=== PATIENT | female | born 1970 | race African-American/Black ===

== ENCOUNTER 2017-01-17 15:45 | Emergency (ER) | payer OTHER ==
[~2017-01-17] VITALS: Ht 170.2 cm; Wt 98.0 kg
[~2017-01-17 15:45] MED LIST: CLON0.1T PO
[2017-01-17 15:46] VITALS: BP 182/102; PULSE 94; RESP 20; TEMP 98.7; O2SAT 98
[2017-01-17] MEDS ORDERED: SODIUM CHLORIDE 0.9% FLUSH 10 ML FLUSH IV FLUSH PRN (19:00)
[2017-01-17] MEDS ORDERED: KETOROLAC TROMETHAMINE 30 MG/ML (IVP) VIAL IV PUSH ONE (19:00)
[2017-01-17] MEDS ORDERED: METOCLOPRAMIDE HCL 10 MG/2 ML VIAL IV PUSH ONE (19:00)
[2017-01-17 19:04] VITALS: BP 186/104; PULSE 74; RESP 19; O2SAT 100
--- NOTE | 2017-01-17 19:06 | PD ---
HPI Chief Complaint: GI Complaint Time Seen by Provider: 18:47 Travel History International Travel<30 days: No Contact w/Intl Traveler<30days: No Traveled to known affect area: No History of Present Illness HPI 46-year-old female with history of hypertension here for evaluation of elevated blood pressure and headache. Patient reports that her headache started this morning after waking up. Headache gradually worsened over time and was not sudden in onset. She reports that she took her blood pressure when she noted the headache and noticed it was 200s over 100s. She took a clonidine with only minimal improvement in her blood pressure. She has had photophobia, nausea, and vomiting with her headache. She describes diffuse head pressure which is currently 6 out of 10. She is also had intermittent blurry vision. No paresthesias or motor deficits. No fevers or recent illness. She no longer has a primary care physician and no longer is able to obtain her amlodipine or atenolol. PFSH Past Medical History Anemia: Yes Asthma: Yes Diminished Hearing: No Headaches: Yes Hypertension: Yes ?: Not LMP: 01/09/17 : 2 Para: 2 Tubal Ligation: Yes Past Surgical History Section: Yes (1988) Social History Alcohol Use: No Tobacco Use: No Substance Use: No Allergies-Medications (Allergen,Severity, Reaction): Coded Allergies: azithromycin (Unverified Allergy, Severe, 01/17/17) erythromycin base (Unverified Allergy, Severe, 01/17/17) Reported Meds & Prescriptions Reported Meds & Active Scripts Active Reported Atenolol 25 Mg Tab Unknown Dose PO DAILY Lisinopril 40 Mg Tab Unknown Dose PO DAILY Norvasc (Amlodipine Besylate) 10 Mg Tab Unknown Dose PO DAILY Review of Systems Except as stated in HPI: all other systems reviewed are Neg Physical Exam Narrative GENERAL: Well-developed, well-nourished, comfortable, no apparent distress. SKIN: Focused skin assessment warm/dry. HEAD: Atraumatic. Normocephalic. EYES: Pupils equal, round, 3 mm, reactive to light. EOMI. No scleral icterus. No injection or drainage. ENT: No nasal bleeding or discharge. Mucous membranes pink and moist. NECK: Trachea midline. No JVD. No nuchal rigidity. CARDIOVASCULAR: Regular rate and rhythm. No murmur appreciated. RESPIRATORY: No accessory muscle use. Clear to auscultation. Breath sounds equal bilaterally. GASTROINTESTINAL: Abdomen soft, non-tender, nondistended. MUSCULOSKELETAL: No obvious deformities. No clubbing. No cyanosis. No edema. NEUROLOGICAL: Awake and alert. No obvious cranial nerve deficits. Motor grossly within normal limits. Normal speech. PSYCHIATRIC: Appropriate mood and affect; insight and judgment normal. Data Data Last Documented VS Vital Signs Date Time Temp Pulse Resp B/P (MAP) Pulse Ox O2 Delivery O2 Flow Rate FiO2 01/17/17 20:19 98.3 89 16 138/76 (96) 99 Room Air Orders Orders Complete Blood Count With Diff (01/17/17 18:54) Comprehensive Metabolic Panel (01/17/17 18:54) Iv Access Insert/Monitor (01/17/17 18:54) Ecg Monitoring (01/17/17 18:54) Oximetry (01/17/17 18:54) Sodium Chloride 0.9% Flush (Ns Flush) (01/17/17 19:00) Metoclopramide Inj (Reglan Inj) (01/17/17 19:00) Ketorolac Inj (Toradol Inj) (01/17/17 19:00) Ct Brain W/O Iv Contrast(Rout) (01/17/17 ) Labs Laboratory Tests Test 01/17/17 19:20 White Blood Count 7.0 TH/MM3 Red Blood Count 4.17 MIL/MM3 Hemoglobin 13.0 GM/DL Hematocrit 39.7 % Mean Corpuscular Volume 95.1 FL Mean Corpuscular Hemoglobin 31.2 PG Mean Corpuscular Hemoglobin Concent 32.8 % Red Cell Distribution Width 14.5 % Platelet Count 219 TH/MM3 Mean Platelet Volume 9.7 FL Neutrophils (%) (Auto) 79.2 % Lymphocytes (%) (Auto) 13.4 % Monocytes (%) (Auto) 6.6 % Eosinophils (%) (Auto) 0.5 % Basophils (%) (Auto) 0.3 % Neutrophils # (Auto) 5.6 TH/MM3 Lymphocytes # (Auto) 0.9 TH/MM3 Monocytes # (Auto) 0.5 TH/MM3 Eosinophils # (Auto) 0.0 TH/MM3 Basophils # (Auto) 0.0 TH/MM3 CBC Comment DIFF FINAL Differential Comment Blood Urea Nitrogen 10 MG/DL Creatinine 0.77 MG/DL Random Glucose 103 MG/DL Total Protein 7.4 GM/DL Albumin 3.7 GM/DL Calcium Level 9.0 MG/DL Alkaline Phosphatase 90 U/L Aspartate Amino Transf (AST/SGOT) 23 U/L Alanine Aminotransferase (ALT/SGPT) 28 U/L Total Bilirubin 0.3 MG/DL Sodium Level 137 MEQ/L Potassium Level 4.3 MEQ/L Chloride Level 104 MEQ/L Carbon Dioxide Level 28.7 MEQ/L Anion Gap 4 MEQ/L Estimat Glomerular Filtration Rate 98 ML/MIN [facility] Medical Decision Making Medical Screen Exam Complete: Yes Emergency Medical Condition: Yes Medical Record Reviewed: Yes Differential Diagnosis Migraine headache, tension headache, cluster headache, elevated blood pressure, hypertensive urgency, hypertensive crisis unlikely Narrative Course Initial vital signs show heart rate 94, blood pressure 182/102, pulse ox 98% on room air, oral temp of 98.7F. CBC is unremarkable. CMP is unremarkable. CT head: Normal exam. No significant change has occurred. Patient's blood pressure improved to 138/76 after her pain was controlled. The patient was given a dose of IV Reglan and IV Toradol and on reassessment she is sleeping comfortably stating that her pain has completely resolved. At this point she is stable for discharge home with outpatient follow-up. I will write her prescription for her atenolol. I will also give her the information to the [facility] to follow-up with this week. She was informed on when to return to the emergency department. She verbalizes understanding and agreement with plan. Diagnosis Primary Impression: Headache Qualified Codes: R51 - Headache Additional Impression: Elevated blood pressure reading Referrals: [facility] 3 days Additional Instructions: Follow-up with a primary care physician this week. Return to the emergency department for worsening symptoms or any other concerns. Scripts Atenolol (Atenolol) 25 Mg Tab 25 MG PO DAILY for Blood Pressure Management, #30 TAB Prov: Andrew Sarmiento MD 01/17/17 Disposition: 01 DISCHARGE HOME Condition: Stable Andrew Sarmiento MD Jan 17, 2017 19:06
[2017-01-17 19:51] LABS: AUTOMATED NEUTROPHIL # 5.6 TH/MM3 (1.8-7.7); BASOPHIL % 0.3 % (0.0-2.0); EOSINOPHIL % 0.5 % (0.0-4.0); HEMATOCRIT 39.7 % (35.0-46.0); HEMO FLAGS DIFF FINAL; LYMPH % 13.4 % (9.0-44.0); LYMPHOCYTE # 0.9 TH/MM3 (1.0-4.8); MEAN CELL VOLUME 95.1 FL (80.0-100.0); MEAN CORPUSCULAR HEMOGLOBIN 31.2 PG (27.0-34.0); MEAN CORPUSCULAR HGB CONC 32.8 % (32.0-36.0); MONO % 6.6 % (0.0-8.0); NEUT % 79.2 % (16.0-70.0); PLATELET COUNT 219 TH/MM3 (150-450); RED BLOOD COUNT 4.17 MIL/MM3 (4.00-5.30); RED CELL DISTRIBUTION WIDTH 14.5 % (11.6-17.2)
[2017-01-17 20:06] LABS: ANION GAP 4 MEQ/L (5-15); AST (GOT) 23 U/L (15-37); BICARBONATE 28.7 MEQ/L (21.0-32.0); BLOOD UREA NITROGEN 10 MG/DL (7-18); CHLORIDE 104 MEQ/L (98-107); GLOMERULAR FILTRATION RATE 98 ML/MIN (>89); POTASSIUM 4.3 MEQ/L (3.5-5.1); SODIUM (NA) 137 MEQ/L (136-145)
[2017-01-17 20:08] LABS: ALT (GPT) 28 U/L (10-53)
[2017-01-17 20:09] LABS: ALKALINE PHOSPHATASE 90 U/L (45-117); TOTAL BILIRUBIN ADULT 0.3 MG/DL (0.2-1.0)
[2017-01-17 20:19] VITALS: BP 138/76; PULSE 89; RESP 16; TEMP 98.3; O2SAT 99
[2017-01-17] MEDS ORDERED: ATEN25TA PO ×2 (20:24→20:35)
[2017-01-17] MEDS ORDERED: LISI40TA PO (20:24)
[2017-01-17] MEDS ORDERED: AMLO10 PO (20:24)
--- NOTE | 2017-01-17 20:25 | RADRPT ---
EXAM DATE/TIME: 01/17/2017 19:59 [facility] COMPARISON: CT BRAIN W/O CONTRAST, April 27, 2010, 23:50. INDICATIONS : Elavated blood pressure,headache,nausea,vomiting RADIATION DOSE: 56.35 CTDIvol (mGy) MEDICAL HISTORY : Hypertension. Asthma SURGICAL HISTORY : Tubal ligation. ENCOUNTER: Initial ACUITY: 1 day PAIN SCALE: 5/10 LOCATION: cranial TECHNIQUE: Multiple contiguous axial images were obtained of the head. Using automated exposure control and adj ustment of the mA and/or kV according to patient size, radiation dose was kept as low as reasonably a chievable to obtain optimal diagnostic quality images. DICOM format image data is available electro nically for review and comparison. FINDINGS: CEREBRUM: The ventricles are normal for age. No evidence of midline shift, mass lesion, hemorrhage or acute in farction. No extra-axial fluid collections are seen. POSTERIOR FOSSA: The cerebellum and brainstem are intact. The 4th ventricle is midline. The cerebellopontine angle i s unremarkable. EXTRACRANIAL: The visualized portion of the orbits is intact. SKULL: The calvaria is intact. No evidence of skull fracture. CONCLUSION: Normal examination. No significant change has occurred. Kirk Power MD on January 17, 2017 at 20:23 Board Certified Radiologist. This report was verified electronically.
== END 2017-01-17 20:39 | disposition home or self-care (01) ==
LOC: NEPD 15:45
DX: R51 Headache (principal); R03.0 Elevated blood-pressure reading, without diagnosis of hypertension; J45.909 Unspecified asthma, uncomplicated; D64.9 Anemia, unspecified; I10 Essential (primary) hypertension
CPT/HCPCS: 70450; 80053; 85025; 96374; 96375; 99285; J1885; J2765

== ENCOUNTER 2017-06-18 12:56 | Emergency (ER) | payer OTHER ==
[~2017-06-18 12:56] MED LIST changes: +AMLO10 PO; +ATEN25TA PO; -CLON0.1T PO; +LISI40TA PO
[2017-06-18 13:45] VITALS: BP 182/116; PULSE 85; RESP 18; TEMP 98.5; O2SAT 99
--- NOTE | 2017-06-18 15:31 | RADRPT ---
EXAM DATE/TIME: 06/18/2017 15:21 [facility] COMPARISON: No previous studies available for comparison. INDICATIONS : Cough and congestion for 1 week MEDICAL HISTORY : Hypertension. asthma SURGICAL HISTORY : Tubal ligation. ENCOUNTER: Initial ACUITY: 1 week PAIN SCORE: 0/10 LOCATION: Bilateral chest FINDINGS: PA and lateral views of the chest demonstrate the lungs to be symmetrically aerated without evidence of mass, infiltrate or effusion. The cardiomediastinal contours are unremarkable. Osseous structure s are intact. CONCLUSION: 1. No acute cardiopulmonary disease. Jose Baker MD on June 18, 2017 at 15:29 Board Certified Radiologist. This report was verified electronically.
[2017-06-18] MEDS ORDERED: BENZ100 PO (15:37)
[2017-06-18] MEDS ORDERED: CLAR10CA3 PO (15:37)
[2017-06-18] MEDS ORDERED: FLUT50SP EACH NARE (15:37)
--- NOTE | 2017-06-18 15:38 | PD ---
HPI Chief Complaint: Cold / Flu Symptoms Time Seen by Provider: 15:07 Travel History International Travel<30 days: No Contact w/Intl Traveler<30days: No Traveled to known affect area: No History of Present Illness HPI 47-year-old female presents to the ED for evaluation of 1 week history of sore throat, sinus congestion, clear rhinorrhea, cough. She states the cough is occasionally productive of green mucus. She denies fever or chills, nausea, vomiting. She endorses history of seasonal allergies. She did receive this years flu vaccine. 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 She states that her blood pressure has also elevated during this time. She denies headache, vision changes, chest pain, shortness of breath, dysuria, hematuria. PFSH Past Medical History Anemia: Yes Asthma: Yes Cardiovascular Problems: Yes (HTN) Diminished Hearing: No Headaches: Yes Hypertension: Yes : 2 Para: 2 Tubal Ligation: Yes Past Surgical History Section: Yes (1988) Social History Alcohol Use: No Tobacco Use: No Substance Use: No Allergies-Medications (Allergen,Severity, Reaction): Coded Allergies: azithromycin (Unverified Allergy, Severe, 01/17/17) erythromycin base (Unverified Allergy, Severe, 01/17/17) Reported Meds & Prescriptions Reported Meds & Active Scripts Active Amlodipine (Amlodipine Besylate) 10 Mg Tab 10 Mg PO DAILY Atenolol 25 Mg Tab 25 Mg PO DAILY Lisinopril 40 Mg Tab 40 Mg PO DAILY Tessalon Perles (Benzonatate) 100 Mg Cap 200 Mg PO TID PRN Fluticasone Nasal [place] 50 Mcg/Act Naspr 100 Mcg EACH NARE BID 14 Days 50 mcg/spray Claritin (Loratadine) 10 Mg Cap 10 Mg PO DAILY 30 Days Atenolol 25 Mg Tab 25 Mg PO DAILY Reported Atenolol 25 Mg Tab Unknown Dose PO DAILY Lisinopril 40 Mg Tab Unknown Dose PO DAILY Norvasc (Amlodipine Besylate) 10 Mg Tab Unknown Dose PO DAILY Review of Systems Except as stated in HPI: all other systems reviewed are Neg Physical Exam Narrative GENERAL: Well-nourished, well-developed AA female in no acute distress. SKIN: Warm and dry. HEAD: Normocephalic. Atraumatic. EYES: No scleral icterus. No injection or drainage. PERRLA. EOMI. ENT: Pearly guo tympanic membranes bilaterally. Nasal mucosa is moist. Oropharynx without erythema, edema or exudate. Posterior cobblestoning noted. NECK: Supple, trachea midline. No JVD or lymphadenopathy. CARDIOVASCULAR: Regular rate and rhythm without murmurs, gallops, or rubs. RESPIRATORY: Breath sounds clear and equal bilaterally. No accessory muscle use. GASTROINTESTINAL: Abdomen soft, non-tender, nondistended. + Bowel sounds MUSCULOSKELETAL: No cyanosis, or edema. Noted to walk with normal gait. BACK: Nontender without obvious deformity. No CVA tenderness. Data Data Last Documented VS Vital Signs Date Time Temp Pulse Resp B/P (MAP) Pulse Ox O2 Delivery O2 Flow Rate FiO2 06/18/17 13:45 98.5 85 18 182/116 (138) 99 Orders Orders Chest, Pa & Lat (06/18/17 ) Ed Discharge Order (06/18/17 15:38) MDM Medical Decision Making Medical Screen Exam Complete: Yes Emergency Medical Condition: Yes Differential Diagnosis Viral syndrome versus bronchitis versus pneumonia versus postnasal drip versus hypertension versus noncompliance versus other Narrative Course 47-year-old female presents to the ED for evaluation of 1 week history of sore throat, sinus congestion, clear rhinorrhea, cough. She states the cough is occasionally productive of green mucus. She denies fever or chills, nausea, vomiting. She endorses history of seasonal allergies. She did receive this years flu vaccine. 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 She states that her blood pressure has also elevated during this time. She denies headache, vision changes, chest pain, shortness of breath, dysuria, hematuria. She states that she is having insurance problems and has been unable to get these medications filled. Vitals reviewed. BP is elevated. On exam this is a nontoxic-appearing -[place] female in no acute distress. There is posterior cobblestoning but the exam is otherwise unremarkable. Chest x-ray reveals no acute cardiopulmonary process. This is upper airway cough syndrome. The patient's prescribed daily antihistamine, intranasal steroids, Tessalon Perles. I also refilled her blood pressure medications. I advised her to seek treatment at the [facility] for better management of her hypertension. She is instructed to take medications as prescribed, follow with the primary care provider or ENT, return for worsening symptoms. She is stable and discharged home. Diagnosis Primary Impression: Upper airway cough syndrome Referrals: Ear / Nose / Throat Specialist Patient Instructions: General Instructions, Postnasal Drip (DC) Additional Instructions: Rest, hydrate. Begin medications today and take them as prescribed. Follow-up with her primary care provider or the ENT specialist. Return to the ED for worsening symptoms or any urgent or emergent medical condition. Med/Other Pt SpecificInfo: Prescription(s) given Scripts Amlodipine (Amlodipine) 10 Mg Tab 10 MG PO DAILY for Blood Pressure Management, #30 TAB 0 Refills Prov: Yokasta Powers DO 06/18/17 Atenolol (Atenolol) 25 Mg Tab 25 MG PO DAILY for Blood Pressure Management, #30 TAB Prov: Yokasta Powers DO 06/18/17 Lisinopril (Lisinopril) 40 Mg Tab 40 MG PO DAILY for Blood Pressure Management, #30 TAB 0 Refills Prov: Yokasta Powers DO 06/18/17 Benzonatate (Tessalon Perles) 100 Mg Cap 200 MG PO TID Y for COUGH, #20 CAP 0 Refills Prov: Yokasta Powers DO 06/18/17 Fluticasone Nasal Cordova (Fluticasone Nasal Cord[place]) 50 Mcg/Act Naspr 100 MCG EACH NARE BID for Allergy Management for 14 Days, #1 BOTTLE 0 Refills 50 mcg/spray Prov: oYkasta Powers DO 06/18/17 Loratadine (Claritin) 10 Mg Cap 10 MG PO DAILY for Allergy Management for 30 Days, #30 CAP 0 Refills Prov: Yokasta Powers DO 06/18/17 Disposition: 01 DISCHARGE HOME Condition: Stable Renetta Verma Jun 18, 2017 15:38
[2017-06-18] MEDS ORDERED: AMLO10TA2 PO (15:47)
[2017-06-18] MEDS ORDERED: ATEN25TA PO (15:47)
[2017-06-18] MEDS ORDERED: LISI40TA PO (15:47)
== END 2017-06-18 15:57 | disposition home or self-care (01) ==
LOC: NED 12:56 → NEPK 15:57
DX: J06.9 Acute upper respiratory infection, unspecified (principal); D64.9 Anemia, unspecified; J45.909 Unspecified asthma, uncomplicated; I10 Essential (primary) hypertension; Z79.899 Other long term (current) drug therapy; Z88.1 Allergy status to other antibiotic agents
CPT/HCPCS: 71046; 99283